=== PATIENT | male | born 1940 | race Caucasian/White ===

== ENCOUNTER → 2025-04-29 08:42 | Outpatient (BNVA) | payer MEDICARE, SELFPAY | PROVIDERS: PCP Internal Medicine; Referring Provider Internal Medicine; Visit Provider Internal Medicine Pulmonary Disease | DX: J44.9 Chronic obstructive pulmonary disease, unspecified (principal); J84.9 Interstitial pulmonary disease, unspecified; R06.00 Dyspnea, unspecified; C61 Malignant neoplasm of prostate | CPT/HCPCS: 99214; 36415 ==

== ENCOUNTER 2025-04-29 10:00 | Outpatient (REF) | payer MEDICARE, SELFPAY ==
[2025-04-29 10:32] LABS: Abs Immature Grans 0.13 10^3/uL (0.0-0.06); HCT 40.4 % (40.0-50.0); HGB 13.3 g/dL (13.5-17.5); Immature Grans % 1.3 %; MCH 27.5 pg (27.0-33.0); MCHC 32.9 % (32.0-36.0); MCV 84 fL (80-95); MPV 9.4 fL (8.0-11.0); Platelet Count 270 10^3/uL (130-400); RBC 4.83 10^6/uL (4.36-5.78); RDW 15.0 % (11.8-14.1); RDW-SD 45.4 fL; WBC 9.96 10^3/uL (4.4-10.8)
[2025-04-29 10:36] LABS: ESR 9 mm/hr (0-20)
[2025-04-29 10:45] LABS: Creatine Kinase 35 U/L (46-171)
[2025-04-29 10:51] LABS: C-Reactive Protein < 0.50 mg/dL (<=0.50)
[2025-04-30 10:46] LABS: RNP Ab, IgG <6.0 CU (<20.0)
[2025-04-30 10:48] LABS: Ro60 Ab, IgG <7.0 CU (<20.0); SS-A/Ro, IgG <2.3 CU (<20.0); SS-B (La) Ab, IgG <3.3 CU (<20.0)
[2025-05-03 10:14] LABS: JO 1 Ab, IgG <0.2 U; Scl 70 Antibodies, IgG <0.2 U; Sm (Smith) Ab, IgG <0.2 U
== END 2025-04-29 10:01 | disposition home or self-care (01) ==
LOC: LBN 10:00
PROVIDERS: PCP Internal Medicine; Visit Provider Internal Medicine Pulmonary Disease
DX: J84.9 Interstitial pulmonary disease, unspecified (principal); J44.9 Chronic obstructive pulmonary disease, unspecified; R06.00 Dyspnea, unspecified
CPT/HCPCS: 82550; 85652; 86200; 86215; 85025; 86038; 86140; 86225; 86235

== ENCOUNTER → 2025-05-31 12:48 | Outpatient (BNVA) | payer MEDICARE, SELFPAY | PROVIDERS: PCP Internal Medicine; Referring Provider Internal Medicine; Visit Provider Internal Medicine Pulmonary Disease | DX: J44.9 Chronic obstructive pulmonary disease, unspecified (principal); J84.9 Interstitial pulmonary disease, unspecified; R91.1 Solitary pulmonary nodule; Z87.891 Personal history of nicotine dependence | CPT/HCPCS: 99214 ==